=== PATIENT | female | born 1975 | race Caucasian/White ===

== ENCOUNTER 2016-09-05 15:05 | Emergency (ER) | payer MEDICAID ==
--- NOTE | 2016-09-05 16:31 | XRAY Preliminary Report ---
Exam: XR Calcaneus RT IMPRESSION: Tiny heel spur. [facility] SITE ID: [id number]
[2016-09-05 16:33] VITALS: BP 100/62
--- NOTE | 2016-09-05 16:34 | XRAY Report ---
EXAM: RIGHT CALCANEUS RADIOGRAPHY EXAM DATE: 09/05/2016 04:13 PM. CLINICAL HISTORY: Pain. COMPARISON: None. TECHNIQUE: 2 views. FINDINGS: Bones: Tiny plantar calcaneal spur. No fracture or other bone lesion. Joints: Normal. No subluxations. Soft Tissues: Unremarkable. IMPRESSION: Tiny heel spur. [facility] Referring Provider Line: [phone] SITE ID: [id number]
--- NOTE | 2016-09-05 16:50 | ED Physician Documentation ---
PD HPI LOWER EXT INJURY - Stated complaint Stated Complaint: R FOOT PX - Chief complaint Chief Complaint: Ext Problem - History obtained from History obtained from: Patient - History of Present Illness PD HPI LOW EXT INJURY LOCATION: Right, Foot (heel) Timing - onset: How many months ago (1) Timing - details: Waxing and waning Worsened by: Palpating, Other (weightbearing) Similar symptoms before: Has not had sx before - Additional information Additional information: The patient is a 41-year-old female who presents with pain in her right heel. She first noticed it about one month ago and it is been persistent, and waxing and waning, since that time. She denies any specific traumatic injury, but does report starting a physical exercise program 6 weeks ago. She has become limited in her ability to jog or run because of discomfort at her right heel. She denies history of similar symptoms in the past. She has tried different shoes thinking that might help, but she has not noticed any improvement. Review of Systems Constitutional: denies: Fever Respiratory: denies: Dyspnea Skin: denies: Rash Musculoskeletal: reports: Extremity pain (right heel). denies: Back pain Neurologic: denies: Focal weakness, Numbness PD PAST MEDICAL HISTORY - Past Medical History Past Medical History: No Cardiovascular: None Endocrine/Autoimmune: None - Past Surgical History Past Surgical History: No - Present Medications Home Medications: Ambulatory Orders Medication Instructions Recorded Confirmed Naproxen [Naprosyn] 500 mg PO BID #30 tablet 09/05/16 - Allergies Allergies/Adverse Reactions: Allergies Allergy/AdvReac Type Severity Reaction Status Date / Time No Known Drug Allergies Allergy Verified 09/05/16 15:32 - Social History Does the pt smoke?: No Smoking Status: Never smoker Does the pt drink ETOH?: No Does the pt have substance abuse?: No - Immunizations Immunizations are current?: Yes PD ED PE NORMAL - Vitals Vital signs reviewed: Yes (normal) - General General: Alert and oriented X 3, Well developed/nourished - HEENT HEENT: Atraumatic - Respiratory Respiratory: No respiratory distress - Derm Derm: No rash - Extremities Extremities: No edema, No calf tenderness / cord, Other (There is tenderness to palpation of the right heel, at the posterior lateral aspect of the calcaneus. There is no tenderness to palpation over the plantar fascia, the lateral malleolus, medial malleolus, and no calf tenderness. Distal neurovascular is intact.) - Neuro Neuro: Alert and oriented X 3, No motor deficit, No sensory deficit Results - Vitals Vitals: Oxygen O2 Source Room air - Rads (name of study) right calcaneus Radiology: Prelim report reviewed, EMP read contemporaneously, See rad report ( Tiny heel spur.) PD MEDICAL DECISION MAKING - ED course Complexity details: reviewed results, re-evaluated patient, considered differential, d/w patient ED course: The patient's presentation is most consistent with bursitis versus strain of the right posterior calcaneal region of the foot. X-ray reveals a tiny heel spur, but no other abnormalities. The heel spur is on the plantar aspect of the calcaneus, which does not correspond to the area of the patient's symptoms, and is most likely an incidental finding. I discussed with the patient the results of the imaging study, symptomatic treatment and outpatient follow-up, as well as potentially worrisome signs or symptoms that should prompt reevaluation in the emergency department. She is being discharged with prescription for Naprosyn. Departure - Departure Disposition: 01 Home, Self Care Clinical Impression: Tendinitis Heel spur Qualifiers: Laterality: right Qualified Code(s): M77.31 - Calcaneal spur, right foot Condition: Stable Instructions: ED Heel Spur Follow-Up: Julita Meza MD [Primary Care Provider] - Prescriptions: Naproxen [Naprosyn] 500 mg PO BID #30 tablet Comments: Use Naprosyn twice daily as prescribed. Let pain be your guide to activity level. Follow up with your primary physician within 2 weeks. Call to schedule an appointment. Return to the emergency department if you develop increasing pain or swelling, or otherwise worsening symptoms. Discharge Date/Time: 09/05/16 17:02
== END 2016-09-05 17:02 | disposition home or self-care (01) ==
LOC: ED 15:05
DX: M77.31 Calcaneal spur, right foot (principal)
CPT/HCPCS: 99283

== ENCOUNTER 2016-11-19 14:14 | Outpatient (CLI) | payer MEDICAID | END 2016-11-19 14:15 | disposition home or self-care (01) | LOC: LAB 14:14 | PROVIDERS: ATTEND Family Medicine | DX: R53.83 Other fatigue (principal) | CPT/HCPCS: 36415; 82626; 83001 ==

== ENCOUNTER 2019-09-06 08:00 | Outpatient (CLI) | payer BC, MEDICAID ==
[2019-09-06 21:18] LABS: TRICHOMONAS VAGINALIS DNA NEGATIVE (NEGATIVE)
[2019-09-07 12:35] LABS: HEPATITIS C ANTIBODY NON-REACTIVE (NON-REACTIVE)
[2019-09-07 14:44] LABS: HIV AG/AB 4TH GEN NON-REACTIVE (NON-REACTIVE)
== END 2019-09-06 23:59 | disposition home or self-care (01) ==
LOC: LAB.WCP 08:00
PROVIDERS: ATTEND Nurse Practitioner
DX: Z11.3 Encounter for screening for infections with a predominantly sexual mode of transmission (principal)
CPT/HCPCS: 36415; 86803; 87389; 87491; 87591; 87661

== ENCOUNTER 2019-11-10 08:00 | Outpatient (CLI) | payer BC | END 2019-11-10 23:59 | disposition home or self-care (01) | LOC: LAB.S 08:00 | PROVIDERS: ATTEND Physician Assistant | DX: K29.00 Acute gastritis without bleeding (principal) | CPT/HCPCS: 36415; 83690 ==

== ENCOUNTER 2019-11-15 07:00 | Outpatient (CLI) | payer BC ==
[2019-11-15 15:48] LABS: H. PYLORIS ANTIGEN STL NEGATIVE (Negative)
== END 2019-11-15 23:59 | disposition home or self-care (01) ==
LOC: LAB.R 07:00
PROVIDERS: ATTEND Nurse Practitioner Family
DX: K29.00 Acute gastritis without bleeding (principal)
CPT/HCPCS: 82270; 87338

== ENCOUNTER 2020-01-18 12:14 | Outpatient (CLI) | payer BC | END 2020-01-18 12:15 | disposition home or self-care (01) | LOC: COV 12:14 | PROVIDERS: ATTEND Family Medicine | DX: R50.9 Fever, unspecified (principal); Z20.828 Contact with and (suspected) exposure to other viral communicable diseases; R53.83 Other fatigue; M79.10 Myalgia, unspecified site ==

== ENCOUNTER 2020-10-23 08:00 | Outpatient (CLI) | payer BC ==
--- NOTE | 2020-10-23 13:18 | XRAY Report ---
PROCEDURE: Chest 2 View X-Ray INDICATIONS: COUGH TECHNIQUE: 2 view(s) of the chest. COMPARISON: None. FINDINGS: Surgical changes and devices: None. Lungs and pleura: No pleural effusions or pneumothorax. Lungs are clear. Mediastinum: Mediastinal contours are normal. Heart size is normal. Bones and chest wall: No suspicious bony abnormalities. Soft tissues appear unremarkable. IMPRESSION: No acute cardiopulmonary disease process. Reviewed by: Amy Hyman MD, PhD on 10/23/2020 1:17 PM PDT Approved by: Amy Hyman MD, PhD on 10/23/2020 1:17 PM PDT Station ID: [id number]
== END 2020-10-23 23:59 | disposition home or self-care (01) ==
LOC: DI.S 08:00
PROVIDERS: ATTEND Physician Assistant Medical
DX: R05 Cough (principal); Z20.822 Contact with and (suspected) exposure to COVID-19